=== PATIENT | male | born 1940 | race Caucasian/White ===

== ENCOUNTER 2017-03-04 12:23 | Emergency (ER) | payer MEDICARE, BC ==
[2017-03-04 12:56] VITALS: RESP 18
[2017-03-04] MEDS ORDERED: SODIUM CHLORIDE 0.9% 1000ML 1,000 ML IV SCH ×2 (13:30)
[2017-03-04 13:43] LABS: BASOPHILS % (AUTO) 0 % (0-3); EOSINOPHILS % (AUTO) 0 % (0-9); HEMATOCRIT 36 % (39-53); MEAN CORPUSCULAR HGB CONC 34.5 gm/dl (32.0-36.0); MEAN CORPUSCULAR VOLUME 92 fL (80-100); MONOCYTES % (AUTO) 5.7 % (0-12); NEUTROPHILS % (AUTO) 88.9 % (37-80)
[2017-03-04 13:46] LABS: APPEARANCE,URINE Cloudy; BILIRUBIN,URINE 1+ (NEGATIVE); COLOR,URINE Yellow; GLUCOSE, URINE (UA) NEGATIVE (NEGATIVE); KETONES,URINE TRACE (NEGATIVE); LEUKOCYTE ESTERASE ,URINE 1+ (NEGATIVE); NITRATE,URINE NEGATIVE (NEGATIVE); OCCULT BLOOD,URINE 3+ (NEG-TRACE); UROBILINOGEN,URINE 0.2 (0.2-1.0 EU)
[2017-03-04 14:11] LABS: ICTOTEST,URINE NEGATIVE (NEGATIVE); WBC,URINE 80-100 (0-5AV/HPF)
[2017-03-04 14:16] LABS: ALBUMIN 2.8 gm/dl (3.4-5.0); ALT 12 IU/L (14-63); CALCIUM 8.5 mg/dl (8.5-10.1); GLOM FILT RATE 50 mL/min (>60); POTASSIUM 4.4 mMol/L (3.5-5.1); SODIUM 142 mMol/L (136-145)
[2017-03-04] MEDS ORDERED: CEFTRIAXONE 1 GM (PREMIX) 1 GM/50 ML SOL IV ONE (14:44)
[2017-03-04] MEDS ORDERED: CEFTRIAXONE 1 GM PDS ONE (14:48)
[2017-03-04] MEDS ORDERED: TRAMADOL HYDROCHLORIDE 50 MG TAB PO ONE (15:25)
[2017-03-04] MEDS ORDERED: TRAMADOL HYDROCHLORIDE 50 MG TAB ONE (15:43)
[2017-03-04 16:16] VITALS: BP 172/84; PULSE 52; O2SAT 98
[2017-03-04 16:18] VITALS: TEMP 98
== END 2017-03-04 16:10 | disposition home or self-care (01) | DRG 690 ==
LOC: ED 12:23
DX: N39.0 Urinary tract infection, site not specified (principal); E86.0 Dehydration
CPT/HCPCS: 36415; 80053; 81001; 82150; 84484; 85025; 87040; 87088; 93005; 96365; 99284; 99285; J0696

== ENCOUNTER 2017-04-29 09:59 | Emergency (ER) | payer MEDICARE, BC ==
[2017-04-29 10:14] VITALS: RESP 20
[2017-04-29 10:50] LABS: BASOPHILS % (AUTO) 0 % (0-3); EOSINOPHILS % (AUTO) 0 % (0-9); HEMATOCRIT 32 % (39-53); MEAN CORPUSCULAR VOLUME 96 fL (80-100); MONOCYTES % (AUTO) 4.9 % (0-12); NEUTROPHILS % (AUTO) 92.1 % (37-80)
[2017-04-29 10:57] LABS: CALCIUM 8.7 mg/dl (8.5-10.1); POTASSIUM 4.9 mMol/L (3.5-5.1)
[2017-04-29 11:15] LABS: APPEARANCE,URINE Turbid; BILIRUBIN,URINE 2+ (NEGATIVE); COLOR,URINE Red; GLUCOSE, URINE (UA) NEGATIVE (NEGATIVE); KETONES,URINE 1+ (NEGATIVE); LEUKOCYTE ESTERASE ,URINE 3+ (NEGATIVE); NITRATE,URINE POSITIVE (NEGATIVE); OCCULT BLOOD,URINE 3+ (NEG-TRACE)
[2017-04-29 11:26] LABS: ICTOTEST,URINE NEGATIVE (NEGATIVE); RBC,URINE UNABLE (0-3AV/HPF); WBC,URINE PACKED (0-5AV/HPF)
[2017-04-29] MEDS ORDERED: LEVOFLOXACIN 25 MG/ML 500 MG in SODIUM CHLORIDE 0.9% 100 ML 100 ML IV ONE (12:00)
[2017-04-29] MEDS ORDERED: SODIUM CHLORIDE 0.9% 1000ML 1,000 ML IV SCH (12:00)
[2017-04-29] MEDS ORDERED: LEVOFLOXACIN 500 MG (PREMIX) 500 MG/100 ML SOL IV ONE ×2 (12:23→12:26)
[2017-04-29 15:17] VITALS: BP 166/91; PULSE 65; TEMP 97.8; O2SAT 99
== END 2017-04-29 14:43 | disposition home or self-care (01) | DRG 690 ==
LOC: ED 09:59
DX: N39.0 Urinary tract infection, site not specified (principal); C67.9 Malignant neoplasm of bladder, unspecified; E86.0 Dehydration; Z98.890 Other specified postprocedural states
CPT/HCPCS: 36415; 80048; 81001; 85025; 85610; 96365; 96366; 99070; 99284; J1956